=== PATIENT | female | born 1965 | race Caucasian/White ===

== ENCOUNTER 2022-04-10 06:00 | Day surgery (SDC) | payer OTHER ==
[2022-04-10] MEDS ORDERED: Propofol 200 MG/20 ML SDV ONE ×3 (09:49→11:03)
[2022-04-10] MEDS ORDERED: Lactated Ringers 1,000 ML IV ONE (10:45)
== END 2022-04-10 12:16 ==
LOC: MW.SDS 06:00
PROVIDERS: ATTEND Surgery
DX: D12.2 Benign neoplasm of ascending colon (principal); D12.0 Benign neoplasm of cecum; D12.3 Benign neoplasm of transverse colon; K64.9 Unspecified hemorrhoids; K57.30 Diverticulosis of large intestine without perforation or abscess without bleeding; J30.9 Allergic rhinitis, unspecified; Z79.82 Long term (current) use of aspirin; Z98.890 Other specified postprocedural states; Z90.710 Acquired absence of both cervix and uterus; Z90.49 Acquired absence of other specified parts of digestive tract; Z87.891 Personal history of nicotine dependence
CPT/HCPCS: 45380; J2704; J7120; 00811

== ENCOUNTER 2023-06-06 09:53 | Day surgery (SDC) | payer OTHER ==
[~2023-06-06 09:53] MED LIST: Lactated Ringers 1,000 ML IV SCH; Sodium Chloride 0.9% 10 ML Syringe FLUSH PRN; Sodium Chloride 0.9% 2.5 ML Syringe FLUSH PRN; Sodium Chloride 0.9% 20 ML SDV IV PRN
[2023-06-06] MEDS ORDERED: propofoL 50 ML ONE (12:31)
[2023-06-06 13:38] VITALS: BP 119/57; PULSE 74
== END 2023-06-06 13:50 | disposition home or self-care (01) ==
LOC: MW.SDS 09:53
PROVIDERS: ATTEND Surgery
DX: Z12.11 Encounter for screening for malignant neoplasm of colon (principal); D12.0 Benign neoplasm of cecum; D12.3 Benign neoplasm of transverse colon; K57.30 Diverticulosis of large intestine without perforation or abscess without bleeding; I10 Essential (primary) hypertension; Z87.891 Personal history of nicotine dependence; Z79.899 Other long term (current) drug therapy
CPT/HCPCS: 45380; J2704; J7120; 00811

== ENCOUNTER 2024-07-07 09:17 | Day surgery (SDC) | payer OTHER ==
[~2024-07-07 09:17] MED LIST changes: -Lactated Ringers 1,000 ML IV SCH
[2024-07-07] MEDS: Lactated Ringers 1,000 ML IV SCH (09:49)
[2024-07-07] MEDS ORDERED: propofoL 500 MG/50 ML 50 ML ONE (09:59)
[2024-07-07 12:12] VITALS: BP 129/73; PULSE 65
== END 2024-07-07 12:25 | disposition home or self-care (01) ==
LOC: MW.SDS 09:17
PROVIDERS: ATTEND Surgery
DX: Z12.11 Encounter for screening for malignant neoplasm of colon (principal); D12.3 Benign neoplasm of transverse colon; D12.5 Benign neoplasm of sigmoid colon; K57.30 Diverticulosis of large intestine without perforation or abscess without bleeding; Z86.0100 Personal history of colon polyps, unspecified; I10 Essential (primary) hypertension; Z87.891 Personal history of nicotine dependence; Z79.899 Other long term (current) drug therapy
CPT/HCPCS: 45380; 45381; J2704; J7120; 00811